=== PATIENT | female | born 1985 ===

== ENCOUNTER 2017-02-11 05:58 | Inpatient (IN) | payer OTHER ==
[~2017-02-11] VITALS: Ht 160 cm; Wt 99.8 kg
--- NOTE | 2017-02-11 08:49 | Operative Report ---
Operative/Inv Procedure Report Surgery Date: 02/11/17 Name of Procedure: Repeat Low Transverse C/section Pre-Operative Diagnosis: History of prior section for breech, Desires repeat c/section, Declines trial of labor/, Borderline control A1GDM Post-Operative Diagnosis: same Estimated Blood Loss: 600 Surgeon/Accounts Payable Manager: YOLETTE LAYNE DO Anesthesia: block (spinal with Astramorph) IV Fluids: 1000 mL Urine Output: 150ml Drains: Hubbard catheter Specimens: Placenta Complications: None Condition: Good Operative Indication: This patient is a 31-year-old 3 para 1011 who presented 39 weeks and 1 day for repeat low-transverse section. She is a history of prior delivery for breech presentation. She is a daf-isuvgsq-sizrfrzeq gestational diabetic, with borderline control and most recent hemoglobin A1c of 6.4. She has been noncompliant with follow-up to the drafter refrigeration. She was counseled on the risks, benefits, alternatives of repeat . She was informed of the risk of bleeding, infection, injury to the organs or the fetus, need for additional procedure should competition occur, she declines trial of labor and vaginal after . Questions were answered she desires to proceed. Operative/Procedure Note Note: The patient was taken to the operating room where anesthesia was obtained without difficulty. She was placed in the dorsal supine position with a left lateral tilt. She was then prepared and draped in usual sterile fashion. A Pfannenstiel skin incision was made over her pre-existing scar. Incision was carried down to the fascia with the scalpel. The fascia was incised with the scalpel and the incision was then extended bilaterally with the Bovie. Inferior aspect the fascial incision was tented up with Jad clamps and rectus muscles dissected off with sharp dissection as well as with the Bovie. Attention was then turned to the superior aspect of the fascial incision which was similarly tented up with Jad clamps and rectus muscles dissected off with sharp dissection as well as with the Bovie. Rectus muscles were in the midline. Peritoneum was identified and entered sharply. Peritoneal incision was then extended superiorly and inferiorly with good visualization the bladder. She was noted to have some serosal adhesions to the bladder. This was taken down with the Metzenbaum. Vesicouterine peritoneum was identified and entered sharply with Metzenbaum scissors. Peritoneal incision was then extended with the Metzenbaum scissors. Bladder flap was created sharply. Lower uterine segment was then incised in transverse fashion with the scalpel. Clear fluid was noted. Uterine incision was then extended bilaterally with blunt dissection. Head was delivered atraumatically. Shoulders and infant were then delivered without complication. The infant was bulb suctioned and a good cry was noted. It was clamped and cut and the was handed to the waiting pediatric team. Placenta was then delivered with gentle traction on the cord. Uterus was then exteriorized and cleared of all clots and debris. Uterine incision was reapproximated with 0 Vicryl in a running locking fashion. A second imbricating suture of 0 Vicryl was then placed. Good hemostasis was noted. The patient was noted to have normal-appearing bilateral fallopian tubes and ovaries and a normal-appearing uterus. Irrigation was performed. Uterine incision was reevaluated and noted to be hemostatic. The uterus was then replaced back into the abdomen and the gutters were cleared of all clots and debris. Uterine incision was noted to be hemostatic. Peritoneum was then reapproximated with 2-0 Polysorb in a running fashion. Fascia was repassed with 0 Vicryl in a running fashion. Subcutaneous tissues were reapproximated 3-0 Polysorb. Skin was closed with 4-0 Biosyn on a Min needle. All sponge lap and needle counts were correct 2 the patient was taken to the recovery area in stable condition. Findings: A #9 ounce Male infant, with scores of 9, 9, 9 at 0802 on 02/11/2017. Normal-appearing uterus, bilateral fallopian tubes, bilateral ovaries Discharge Disposition: childbirth center
--- NOTE | 2017-02-11 10:58 | History & Physical ---
General Information and HPI MD Statement: I have seen and personally examined DONTRELL GARRISON and documented this H&P. The patient is a 31 year old female at [39] weeks and 2 days gestation who presented with a chief complaint of scheduled repeat . Source of Information: patient Exam Limitations: no limitations History of Present Illness: 31-year-old 3 para 1011 who presents at 39 weeks and 2 weeks for repeat . She is a history of prior delivery for breech presentation. She declines trial of labor and vaginal after . She was a late transfer to our office at 34 weeks. She is a gestational diabetic not on insulin. She had what appeared to be borderline control. Attempts to have her follow-up with chief jailer were unsuccessful. Her most recent hemoglobin A1c was 6.4. Allergies/Medications Allergies: Coded Allergies: Sulfa (Sulfonamide Antibiotics) (Intermediate, hives 02/11/17) bee venom protein (honey bee) (Mild, swelling 02/11/17) Compliance With Home Meds: UNKNOWN Past History science professor History : 3 Para: 1 Last Menstrual Period: 05/13/2016 Estimated Delivery Date: 02/17/2017 Past science professor History: CSECTION Past Pregnancies Past Pregnancies: Date of Delivery: July 2013 39 week for breech Medical History Blood Transfusion Hx: No Neurological: NONE EENT: NONE Cardiovascular: NONE Respiratory: NONE Gastrointestinal: NONE Hepatic: NONE Renal: NONE Musculoskeletal: NONE Psychiatric: NONE Endocrine: GESTATIONAL DIABETES Blood Disorders: NONE Cancer(s): NONE ADVERTISING COPYWRITER/Reproductive: endometriosis, HISTORY OF leep Surgical History Pertinent Surgical History: LAPAROSCOPY FOR ENDOMETRIOSIS, WRIST SURGERY Past Family/Social History Psychosocial History Smoking Status: Former Smoker Review of Systems Review of Systems Constitutional: Reports: no symptoms. Cardiovascular: Reports: no symptoms. Respiratory: Reports: no symptoms. GI: Reports: no symptoms. Genitourinary: Reports: no symptoms. Neurological/Psychological: Reports: no symptoms. All Other Systems: Reviewed and Negative Exam & Diagnostic Data Last 24 Hrs of Vital Signs/I&O Intake & Output 02/11 1600 02/11 0800 02/11 0000 Intake Total Output Total Balance Patient 220 lb Weight Obstetric Exam Wgt Gained During : 26 Pelvimetry: NA Dilation (cm): 0 Effacement (%): 0 Station: 0 Membranes: intact Fluid: unknown Fundal Height (cm): 39 Multiple Gestation? No Contractions: NA' Infant #1 - FHR Baseline: 130 Category: 1 Estimated Weight: 8 Presentation: Vertex Patient for Induction? No Physical Exam General Appearance Alert, Oriented X3, Cooperative, No Acute Distress Cardiovascular Regular Rate, Normal S1, Normal S2 Lungs Clear to Auscultation, Normal Air Movement Abdomen Normal Bowel Sounds, Soft, No Tenderness, No Hepatospenomegaly, No Masses, GRAVID Neurological Normal Gait, Normal Speech, Strength at 5/5 X4 Ext, Normal Tone Reproductive (FEMALE) Normal female genitalia Labs Blood Type & Rh: O+ Antibody Screen: Negative Hct/Hgb & Platelets #1: 11.6 35.3 215 Hct/Hgb & Platelets #2: 10.9 36.2 214 Rubella: immune VDRL #1: Negative VDRL #2: Negative HbsAg: Negative HIV #1: Negative HIV #2 Negative 1 Hr P 3 Hr PG: Abnormal Group B Strep: Negative Initial Ultrasound: Not available Anatomy Ultrasound: 19 weeks and 5 days, normal growth and anatomy, posterior placenta Ultrasound for EFW: 60 percentile at 34 weeks and 5 days Genetic Testing: Negative CF, fragile X, SMA , AFP negative Last 24 Hrs of Labs/Melquiades: Microbiology 02/11 0834 URINE ROUT: Urine Culture - COLB 02/11 0750 URINE ROUT: Urine Culture - RECD Microbiology 02/11 0834 URINE ROUT: Urine Culture - COLB 02/11 0750 URINE ROUT: Urine Culture - RECD Assessment/Plan Assessment/Plan: 31-year-old 3 para 1 at 39 weeks and 2 days with prior history of delivery. She declines trial of labor and vaginal after . History significant for obo-hboyodc-ezvbwkcfu gestational diabetes. Control appears to be borderline. She did not follow up with endocrinology after she transferred into our practice at 34 weeks. Plan is to proceed with repeat low transverse section. The benefits, alternatives were discussed patient including risk of bleeding, infection, injury to the organs or fetus. She stated verbal understanding of all the above and desires to proceed. As Ranked By This Provider Problem List: 1. 2. Gestational diabetes mellitus (GDM) affecting Core Measures/Miscellaneous Venous Thromboembolism VTE Risk Factors: / VTE Contraindications: No Contraindications VTE Diagnosis: No Beta Regan Is Beta Regan a Home Med? No Antibiotics Is Patient on Antibiotics? No Attending MD Review Statement Attending Statement Attending MD Statement: examined this patient, discussed with family, discussed w/nursing
--- NOTE | 2017-02-12 09:03 | PN- OBGYN ---
Surgical Brief Attending Note Brief Attending Note: NO COMPLAINTS. DOING WELL. HAS NOT YET BEEN UP OR AMBULATING. SINGLETARY IN PLACE. + TOLERATING PAIN AND PO. UNSURE OF LOCHIA. NO FLATUS YET VSSAF FF@U INC: OLD BLOOD ON STERI STRIPS. NO ACTIVE BLEEDING. APPEARS CLEAN/DRY/INTACT EXT: 2+PEDAL EDEMA B/L Laboratory Tests 02/12/17 0800: CBC w Diff Pending, WBC Pending, RBC Pending, Hgb Pending, Hct Pending, MCV Pending, MCH Pending, RDW Pending, Plt Count Pending, MPV Pending, PUBS MCHC Pending Microbiology 02/11 0834 URINE ROUT: Urine Culture - COLB 02/11 0750 URINE ROUT: Urine Culture - RECD A/P POD 1. DOING WELL. S/P REPEAT C/S. BORDERLINE CONTROLLED A1GDM. ADVISED 6 WEEK F/U WITH ENDOCRINE. ROUTINE PP CARE. COUNSELED ON CIRC.
[2017-02-12 09:07] LABS: ABSOLUTE BASOPHIL COUNT 0 /CUMM (0.0-0.2); ABSOLUTE EOSINOPHIL COUNT 0.1 /CUMM (0.0-0.7); MEAN CORPUSCULAR HGB CONC 32.8 G/DL (33.0-37.0); MEAN PLATELET VOLUME 10.4 FL (7.4-10.4)
[2017-02-12 09:21] LABS: ABSOLUTE GRANULOCYTE CT 5.4 /CUMM (1.4-6.5); ABSOLUTE LYMPH COUNT 1.9 /CUMM (1.2-3.4); ABSOLUTE MONOCYTE COUNT 0.6 /CUMM (0.10-0.60); BASOPHIL % 0.5 % (0.0-2.0); GRANULOCYTE % 67.4 % (42.2-75.2); MEAN CORPUSCULAR HGB 27.7 PG (27.0-31.0); MEAN CORPUSCULAR VOLUME 84.4 FL (81.0-99.0); PLATELET COUNT 136 /CUMM (130-400); RBC DISTRIBUTION WIDTH 16.1 % (11.5-14.5)
[2017-02-12 09:24] LABS: HEMATOCRIT 30.4 % (37-47)
--- NOTE | 2017-02-13 11:41 | PN- OBGYN ---
Surgical Brief Attending Note Brief Attending Note: no complaints. doing well. +ambulating, voiding, tolerating pain and po. + nursing. normal lochia. Pt wants to d/c lovenox shots because they "sting" VSSAF FF@U ext: no calf tenderness 2+ pedal edema Laboratory Tests 02/12/17 0800: CBC w Diff NO MAN DIFF REQ, RBC 3.60 L, MCV 84.4, MCH 27.7, RDW 16.1 H, MPV 10.4, Gran % 67.4, Lymphocytes % 24.2, Monocytes % 6.9, Eosinophils % 1.0, Basophils % 0.5, Absolute Granulocytes 5.4, Absolute Lymphocytes 1.9, Absolute Monocytes 0.6, Absolute Eosinophils 0.1, Absolute Basophils 0, PUBS MCHC 32.8 L Microbiology 02/11 0834 URINE ROUT: Urine Culture - CAN Cancelled: DUPLICATE ORDERS 02/11 0750 URINE ROUT: Urine Culture - RES a/p POD2. doing well. Routine pp care. lovenox encouraged. She may refuse if wants. Anticipate d/c in am.
[2017-02-14] MEDS ORDERED: IBUPROFEN800 M1 PO (09:26)
[2017-02-14] MEDS ORDERED: PERCOCET 5-3251 EACH PO (09:26)
[2017-02-14] MEDS ORDERED: BISAC-EVAC10 M1 PR (09:45)
--- NOTE | 2017-02-14 09:52 | PN- OBGYN ---
Surgical Brief Attending Note Brief Attending Note: PPD#3 pt is ambulatinmg , c/o constipation. she had bowel movement last night, but this am, she felt the urge to have it again but could not. she tolerate diet, void withoput difficulties. PE: VSS CV RRR lungs CTA B/L Abdomen: soft, nontender, small rash seen , itching as per pt. uterus firm, fundus below umbilicus, incision D/C/I, lochia mild. Ext: Edema(+), DCT (-) A/P: 31yo, s/p RLTCS, POD #3 1. encourage ambulation 2. rash at abdomen likely due to skin irritation by abdominal binder. advise pt to have OTC topical cream as needed. she agreed 3. may use 1 dose to dulcolex for constipation 4. will d/c home , f/u in office in 2 wks and 6 wks
--- NOTE | 2017-03-03 10:16 | Discharge Summary ---
Visit Information Visit Dates Admission Date: 02/11/17 Discharge Date: 02/14/17 Hospital Course Course Attending Physician: YOLETTE LAYNE DO Primary Care Physician: PATIENT HAS NO PRIMARY CARE DR Hospital Course: This patient is a 31-year-old 3 para 1011 who presented 39 weeks and 1 day for repeat low-transverse section. She is a history of prior delivery for breech presentation. She is a swa-lfwkugi-kpcxcjtkv gestational diabetic, with borderline control and most recent hemoglobin A1c of 6.4. She has been noncompliant with follow-up to the pastry artist after transferring to our practice in the third trimester. The patient delivered by delivery uneventfully. Her postop course was similarly uneventful. She was discharged home on postoperative day #3 in good condition. She was ambulating, voiding, tolerating pain and by mouth, nursing, normal lochia. Complications: None Allergies: Coded Allergies: Sulfa (Sulfonamide Antibiotics) (Intermediate, hives 02/11/17) bee venom protein (honey bee) (Mild, swelling 02/11/17) Significant Procedures: Repeat low transverse section Disposition Summary Disposition Principal Diagnosis: Term , delivered Additional Diagnosis: Zzt-jkjevcz-oprvwpidc gestational diabetic, history of prior delivery, declines trial of labor Discharge Disposition: home or self care Discharge Instructions General Discharge Information Code Status: Full Code Patient's Diet: Regular Patient's Activity: Pelvic rest and no heavy lifting for 6 weeks Follow-Up Instructions/Appts: [facility] 2 [facility] and 6 weeks, follow- up for severe pain, heavy vaginal bleeding, fever over 100 Medications at Discharge Discharge Medications: Start taking the following new medications: Ibuprofen (Ibuprofen) 800 MG TABLET 800 Milligram ORAL EVERY SIX HOURS NEEDED as needed for UTERINE CRAMPING Qty = 30 No Refills Comments: Last Taken:02/14/17 Time:0700 Oxycodone HCl/Acetaminophen (Percocet 5-325 MG Tablet) 5 MG-325 MG TABLET 2 Tablet ORAL EVERY 4 HOURS NEEDED as needed for PAIN SCALE 7-10 (SEVERE) Qty = 30 No Refills Comments: Last Taken:02/14/17 Time:0510 Bisacodyl (Bisac-Evac) 10 MG SUPP.RECT 10 Milligram RECTALLY DAILY NEEDED as needed for CONSTIPATION Qty = 1 No Refills Copies To: YOLETTE LAYNE DO Attending MD Review Statement Other Findings: The patient delivered an 8 lbs. 9 oz. infant with scores of 9, 9, 9, she had a normal-appearing uterus, bilateral fallopian tubes, bilateral ovaries
== END 2017-02-14 10:46 | DRG 540 ==
LOC: GNO 05:58
PROVIDERS: Obstetrics & Gynecology; ADMIT Obstetrics & Gynecology
PROC: 10D00Z1 Extraction of Products of Conception, Low, Open Approach (ICD-10-PCS; principal; 2017-02-11)
DX: O34.211 Maternal care for low transverse scar from previous cesarean delivery (principal); N85.8 Other specified noninflammatory disorders of uterus; O24.429 Gestational diabetes mellitus in childbirth, unspecified control; Z3A.39 39 weeks gestation of pregnancy; Z37.0 Single live birth
CPT/HCPCS: GNOS; 36415; 81001; 87086; 88307; J0131; J0690; J1650; J1885; J7120